=== PATIENT | female | born 1990 | race Hispanic/Latino ===

== ENCOUNTER 2024-08-17 13:41 | Emergency (ER) | payer OTHER ==
[~2024-08-17] VITALS: Ht 157.5 cm; Wt 93.1 kg
[2024-08-17] MEDS: LACTATED RINGER'S 1,000 ML INJ ONE (15:11)
[2024-08-17] MEDS: ONDANSETRON HCL INJ 2MG/ML 2ML 2 MG/ML VIAL IV ONE (15:11)
[2024-08-17] MEDS: FAMOTIDINE 20 MG/2 ML VIAL IV ONE (15:11)
[2024-08-17] MEDS: KETOROLAC TROMETHAMINE 30 MG/ML VIAL IV ONE (15:14)
[2024-08-17] MEDS ORDERED: ONDANSETRON ODT4 MG PO (15:42)
[2024-08-17] MEDS ORDERED: FAMOTIDINE20 MG PO (15:42)
[2024-08-17] MEDS ORDERED: MAALOX MAXIMUM355 ML PO (15:42)
[2024-08-17 17:05] VITALS: PULSE 74; RESP 16; TEMP 98; O2SAT 97
== END 2024-08-17 17:05 | disposition home or self-care (01) ==
LOC: FSED 13:46
DX: R11.2 Nausea with vomiting, unspecified (principal); K52.9 Noninfective gastroenteritis and colitis, unspecified; R10.11 Right upper quadrant pain; E11.65 Type 2 diabetes mellitus with hyperglycemia; E78.5 Hyperlipidemia, unspecified; R53.81 Other malaise
CPT/HCPCS: 74176; 80048; 80076; 81003; 81025; 85025; 96374; 96375; 99284; J1885; J2405; J7121